=== PATIENT | female | born 1970 | race Caucasian/White ===

== ENCOUNTER 2017-03-22 11:43 | Emergency (ER) | payer MEDICARE, OTHER ==
[~2017-03-22 11:43] MED LIST: ASPIRIN EC81 MG PO; DILANTIN100 MG PO; ELIQUIS 2.5 MG2.5 MG PO; ENSURE PLUS FIBE1 EA PO; FOLIC ACID 1 MG1 MG PO; LIPITOR20 MG PO; LOPRESSOR 25 MG25 MG PO; NORCO 7.5-3251 EACH PO; PROTONIX40 MG PO; PROZAC20 MG PO; RENVELA800 MG PO; SENSIPAR90 MG PO; VISTARIL25 MG PO; XANAX1 MG PO; [UNRECOGNIZED DRUG - CODE] SQ
== END 2017-03-22 13:35 | disposition home or self-care (01) ==
LOC: ER1 11:43
DX: S29.012A Strain of muscle and tendon of back wall of thorax, initial encounter (principal); G89.29 Other chronic pain; I48.91 Unspecified atrial fibrillation; I10 Essential (primary) hypertension; F17.210 Nicotine dependence, cigarettes, uncomplicated; Z86.73 Personal history of transient ischemic attack (TIA), and cerebral infarction without residual deficits; Z88.1 Allergy status to other antibiotic agents; Z88.5 Allergy status to narcotic agent; Z99.2 Dependence on renal dialysis; X58.XXXA Exposure to other specified factors, initial encounter; Z79.891 Long term (current) use of opiate analgesic; Z79.82 Long term (current) use of aspirin; Z79.899 Other long term (current) drug therapy
CPT/HCPCS: 72072; 99283